=== PATIENT | female | born 1950 | race African-American/Black ===

== ENCOUNTER 2020-06-18 00:57 | Emergency (ER) | payer OTHER ==
[~2020-06-18] VITALS: Ht 160 cm; Wt 84.8 kg
[2020-06-18] MEDS ORDERED: AVAPRO75 MG PO (01:13)
[2020-06-18] MEDS ORDERED: PRAVACHOL 20 MG20 M1 PO (01:13)
[2020-06-18] MEDS ORDERED: GLIMEPIRIDE4 MG PO (01:14)
[2020-06-18] MEDS ORDERED: JANUMET XR 1001 EACH PO (01:14)
[2020-06-18] MEDS ORDERED: ARICEPT10 M1 PO (01:15)
[2020-06-18] MEDS ORDERED: LEXAPRO 10 MG T10 M1 PO (01:15)
[2020-06-18] MEDS ORDERED: CEPHALEXIN500 MG PO (01:43)
[2020-06-18] MEDS ORDERED: AUGMENTIN 875-1 EACH PO (01:45)
[2020-06-18] MEDS ORDERED: CLEOCIN HCL300 MG PO (01:49)
[2020-06-18] MEDS ORDERED: AMOXICILLIN875 MG PO (01:49)
[2020-06-18 02:08] VITALS: BP 131/68
== END 2020-06-18 02:10 | disposition home or self-care (01) ==
LOC: ER 00:57
DX: L03.211 Cellulitis of face (principal); E11.9 Type 2 diabetes mellitus without complications; Z79.899 Other long term (current) drug therapy